=== PATIENT | female | born 1975 | race Hispanic/Latino ===

== ENCOUNTER 2020-02-13 02:31 | Outpatient (CLI) | payer OTHER, SELFPAY ==
[2020-02-13 18:16] LABS: SARS-CoV-2 RNA PCR Negative
== END 2020-02-13 02:32 | disposition home or self-care (01) ==
LOC: ANHCOVIDDT 02:31
PROVIDERS: PCP Family Medicine; Visit Provider Obstetrics & Gynecology
DX: Z01.812 Encounter for preprocedural laboratory examination (principal); Z20.828 Contact with and (suspected) exposure to other viral communicable diseases
CPT/HCPCS: 87635; C9803; U0003

== ENCOUNTER 2020-02-15 01:23 | Day surgery (SDC) | payer OTHER, SELFPAY ==
[2020-02-06 11:23] VITALS: BMI 26.2
[2020-02-15] MEDS: ACETAMINOPHEN 500 MG TABLET 1000 MG PO (06:45)
[2020-02-15] MEDS: LACTATED RINGERS 1,000 ML 30 ML IV CONT ×2 (06:51→08:10)
--- NOTE | 2020-02-15 06:51 | WPDANESEPPF ---
Anes - Initial Pre Proc Eval Procedure: Operation Date: 02/15/20 07:30 Proposed Procedures p Hysteroscopy, Urmila Endometrial Ablation - Brandon Lazo MD Date/Time: 02/15/20 06:51 Surgeon: Brandon Lazo MD Pre Op Diagnosis: Menorrhagia Patient Data Age: 44 Gender: F Height: 5 ft 5 in Weight: 71.67 kg Allergies Allergy/AdvReac Type Severity Reaction Status Date / Time No Known Allergies Allergy Unverified 02/06/20 11:23 Home Medications Medication Instructions Recorded Confirmed Type ergocalciferol (vitamin D2) 50,000 unit PO DAILY 02/06/20 02/15/20 History fluconazole 200 mg PO WEEKLY 02/06/20 02/15/20 History Patient hx anesthesia problems: none Family hx anesthesia problems: none [facility] Past Medical History Medical History (Updated 02/15/20 @ 06:55 by Brent Cruz MD) Menorrhagia Overweight Surgical History Surgical History (Updated 02/15/20 @ 06:56 by Brent Cruz MD) H/O breast augmentation History of abdominoplasty History of bunionectomy Social History Social History Smoking status: Never smoker Spiritual care concerns: No Anes - Eval Final PreProcedure Day of Procedure 02/15/20 06:51 Patient weight: overweight Heart: regular rate and rhythm Lungs: clear to auscultation Airway: Mallampati scale class II Neurological: alert and oriented Last oral intake: >/= 8 hours ASA classification: II Emergent: no Anesthetic plan: proceed Anesthesia type and monitoring: general GIVS and standard monitoring Informed Consent: The patient's anesthetic plan and its attendant risks and benefits were discussed with the patient/family/POA. Questions were solicited and answers provided to the satisfaction of the patient/family/POA.
[2020-02-15 06:53] VITALS: BP 111/67; PULSE 79; TEMP 36.3; O2SAT 100
--- NOTE | 2020-02-15 07:11 | WPDHPUPDATE1 ---
History and Physical Update Update Date/Time: 02/15/20 07:11 History and Physical has been reviewed, including an updated exam of the patient. There are NO changes in the patient's condition. Risks, benefits, and alternatives have been discussed and questions answered. Patient agrees to proceed with procedure.
[2020-02-15] MEDS: KETOROLAC 30 MG/ML VIAL (*BKC) IV PUSH (07:45)
--- NOTE | 2020-02-15 08:05 | SUR.OPER ---
700ml ns in, 700ml ns out. aware.
[2020-02-15 08:10] VITALS: BP 102/67; PULSE 76; RESP 18; O2SAT 95
--- NOTE | 2020-02-15 08:15 | PM.PROC ---
Procedure Note - Detailed Date of procedure: 02/15/20 Pre-op diagnosis: Menorrhagia Post-op diagnosis: same Procedure performed: Hysteroscopy D&C, endometrial ablation Description of procedure: The patient was taken the operating room. She has prepped and draped in the dorsal lithotomy position. Speculum was placed the vagina. The cervix grasped with a tenaculum. The cervix was injected at 3 and 9:00 a.m. with 1% lidocaine. The hysteroscope was inserted the intrauterine cavity through the cervix. The above findings were noted. The hysteroscope and uterine sound were used to calculate endometrial cavity length. The endometrial cavity length was entered into the device hand piece. The endometrial cavity was curettaged thoroughly with a medium-size curette. All surfaces were curettaged. The sample was sent to pathology. The device was placed in the intrauterine cavity and the array was expanded. The balloon cuff was inflated. The power and safety checks were initiated. Never completed the array was collapsed and the balloon cuff was collapsed. The device was withdrawn. The hysteroscope was inserted back into the intrauterine cavity and well desiccated endometrial cavity was observed. The speculum was removed. The tenaculum was removed. The patient tolerated procedure well. She is take covering stable condition. Anesthesia: MAC Surgeon: Brandon Lazo MD Estimated blood loss (mL): 15 Drains: No Packing: No Pathology: yes Complications: No immediate complications Condition: stable Disposition: PACU Findings: Normal appearing vulva vagina and cervix., normal-appearing intrauterine cavity.
[2020-02-15 08:40] VITALS: BP 96/70; PULSE 69; RESP 18; O2SAT 100
[2020-02-15 09:10] VITALS: BP 91/65; PULSE 66; RESP 18
== END 2020-02-15 09:13 | disposition home or self-care (01) ==
PROVIDERS: PCP Family Medicine; Visit Provider Obstetrics & Gynecology
PROC: 0U5B8ZZ Destruction of Endometrium, Via Natural or Artificial Opening Endoscopic (ICD-10-PCS; CPT 58563; principal; 2020-02-15 07:30)
DX: N92.0 Excessive and frequent menstruation with regular cycle (principal)
CPT/HCPCS: 58563; A9270; J1100; J1885; J2001; J2250; J2704; J7030; J7120

== ENCOUNTER 2020-04-10 12:30 | Emergency (ER) | payer OTHER, SELFPAY ==
--- NOTE | ~2020-04-10 | CT_ITS ---
EXAMINATION: CT abdomen pelvis wo con DATE: 04/10/2020 14:08 INDICATION: Left lower quadrant abdominal pain. Diarrhea. TECHNIQUE: Computed tomography (CT) of the abdomen and pelvis was performed without intravenous contr ast. Automated exposure control and iterative reconstruction technique were employed. The dose-length product was 474.52 mGy-cm. COMPARISON: None. FINDINGS: The visualized portions of the lung bases are clear without pneumonia or pleural effusion. The heart size is normal. No pericardial effusion. The liver, gallbladder, spleen, pancreas, adrenal glands, and right kidney are normal. There is a 5.2 cm cyst in left kidney. There is no urolithiasis. There are no dilated loops of bowel. The appendix is normal. There are no pathologically enlarged ly mph nodes. There is no free intraperitoneal fluid. There is severe lower lumbar spondylosis. IMPRESSION: 1. No etiology for the patient's symptoms. Reviewed, dictated and finalized at location B. ERENCE PLANNING MANAGER
[2020-04-10 12:33] VITALS: BP 125/90; PULSE 87; RESP 16; TEMP 36.1; O2SAT 100
[2020-04-10 13:23] LABS: Add Urine Microscopic? YES; Appearance Urine Clear (Clear); Bacteria Urine Trace /hpf; Basophils Percent Auto 0.3 % (0.2-1.2); Bilirubin Urine Negative (Negative); Blood Urine Negative (Negative); Color Urine Yellow (Yellow); Eosinophils Percent Auto 0.4 % (0-4.4); Glucose Urine UA Negative (Negative); Hematocrit 49.4 % (37.0-47.0); Hemoglobin 16.3 g/dL (12.0-15.0); Immature Granulocyte Absolute 0.04 K/mm3 (0.00-0.031); Immature Granulocyte Percent A 0.5 % (0-0.5); Ketones Urine Trace mg/dL (Negative); Leukocyte Esterase Ur Negative LEU/UL (Negative); Lymphocytes Absolute Auto 1.85 K/mm3 (0.9-3.2); Lymphocytes Percent Auto 25.4 % (18.3-44.2); Mean Corpuscular Hemoglobin 30.2 pg (26-34); Mean Corpuscular Volume 91.5 fl (80-100); Mean Platelet Volume 10.6 fl (7.4-10.4); Monocytes Absolute Auto 0.6 K/mm3 (0.1-0.6); Monocytes Percent Auto 7.8 % (2.6-8.5); Mucus Urine Heavy /lpf; Neutrophils Absolute Auto 4.8 K/mm3 (1.3-6.7); Neutrophils Percent Auto 65.6 % (45.5-73.1); Nitrate Urine Negative (Negative); Platelet Count Result 274 k/mm3 (150-375); Protein Urine 1+ mg/dL (Negative); RBC Urine 0-2 /hpf (0-2); Red Cell Distribution Width 12.9 % (11.5-14.5); Specific Grav Ur 1.028 (1.001-1.035); Squamous Epithelial Cell Urine Occasional /hpf (Few); Urobilinogen Urine Negative mg/dL (<2.0); WBC Urine 0-3 /hpf; White Blood Count 7.3 K/mm3 (4.5-10.0)
[2020-04-10 13:32] LABS: Alanine Aminotransferase 12 U/L (4-35); Albumin Level 3.8 g/dL (3.5-5.1); Alkaline Phosphatase 72 U/L (38-126); Anion Gap 8 mmol/L (8-16); Aspartate Amino Transferase 20 U/L (14-36); Bilirubin,Total 0.4 mg/dL (0.2-1.3); Blood Urea Nitrogen 17 mg/dL (7-17); Calcium 8.6 mg/dL (8.4-10.2); Carbon Dioxide 28 mmol/L (22-30); Chloride 104 mmol/L (98-107); Estimated CRCL calculation 80 ml/min; Estimated Glomerular Filt Rate > 60; Glucose 96 mg/dL (65-105); Lipase 43 U/L (23-300); Potassium 3.3 mmol/L (3.4-5.0); Sodium 140 mmol/L (137-145)
--- NOTE | 2020-04-10 14:45 | ED.ABDPAIN ---
HPI - Abdominal Pain General Chief Complaint: Abdominal Pain Stated Complaint: ABD pain Time Seen by Provider: 04/10/20 13:04 Source: patient Mode of arrival: ambulatory Limitations: no limitations History of Present Illness HPI narrative: Patient presents with chief complaint of pain to the left lower quadrant that has been occurring since before February. 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 Patient states that she had a endometrial ablation but was very upset because she has since had to menstrual. Is which is very uncommon after having the procedure. Patient states that she also noticed some vaginal discharge which she told Dr. Lance about so she was seen in his office this morning and had a vaginal examination as well as ultrasound and he states that her symptoms were not gynecological. He instructed her to come to the emergency department for evaluation to see if her symptoms were related to her colon or another area. Related Data Home Medications Medication Instructions Recorded Confirmed ergocalciferol (vitamin D2) 50,000 unit PO DAILY 02/06/20 02/15/20 fluconazole 200 mg PO WEEKLY 02/06/20 02/15/20 Allergies Allergy/AdvReac Type Severity Reaction Status Date / Time No Known Allergies Allergy Unverified 02/06/20 11:23 Review of Systems Review of Systems: Narrative: CONSTITUTIONAL: Denies fever, chills, or sweats. EYES: Denies visual changes, redness, or discharge. ENT: Denies rhinorrhea, congestion, sore throat, or otalgia. CARDIOVASCULAR: Denies chest pain, palpitations, or edema. RESPIRATORY: Denies cough or dyspnea. GASTROINTESTINAL: Reports left lower quadrant abdominal pain, occasional vaginal bleeding and discharge, denies nausea, vomiting, or diarrhea. GENITOURINARY: Denies dysuria or hematuria. SKIN: Denies rash or itching. MUSCULOSKELETAL: Denies back pain, joint pain, or myalgia. NEUROLOGIC: Denies headache, numbness, dizziness, or weakness. PSYCHIATRIC: Denies anxiety or depression. [facility] Past Medical History Medical History (Updated 04/10/20 @ 14:49 by Jovita Smith PA-C) Menorrhagia Overweight Surgical History Surgical History (Updated 02/15/20 @ 06:56 by Brent Cruz MD) H/O breast augmentation History of abdominoplasty History of bunionectomy Social History Social History Smoking status: Never smoker Gender identity (if verbalized by the patient): Female Spiritual care concerns: No Exam Narrative: Exam Narrative: GENERAL: Well-appearing, well-nourished, and in no acute distress. HEAD: Normocephalic, atraumatic. EYES: PERRLA and EOMI. ENT: Nares clear, no rhinorrhea or epistaxis. Mucous membranes moist. Oropharynx without tonsillar hypertrophy exudate or other lesions. Bilateral TMs pearly nuno nonbulging CHEST: Clear to auscultation. No respiratory distress. No wheezes rales or rhonchi HEART: Regular rate and rhythm. No murmur heard. Normal peripheral pulses. ABDOMEN: Soft, tender with palpation of the left lower quadrant, nondistended, normal active bowel sounds. EXTREMITIES: Normal range of motion. No edema. SKIN: Warm, dry, no rash. NEURO: No focal deficits. Alert and oriented x3. PSYCH: Normal mood and affect. Course Vital Signs Vital signs: Vital Signs Temperature 97.0 F L 04/10/20 12:33 Pulse Rate 87 04/10/20 12:33 Respiratory Rate 16 04/10/20 12:33 Blood Pressure 125/90 04/10/20 12:33 Pulse Oximetry 100 04/10/20 12:33 Temperature 97.0 F L 04/10/20 12:33 Pulse Rate 87 04/10/20 12:33 Respiratory Rate 16 04/10/20 12:33 Blood Pressure 125/90 04/10/20 12:33 Pulse Oximetry 100 04/10/20 12:33 MDM - Abdominal Pain MDM Narrative Medical decision making narrative: Consult with Dr. Lance who states the patient has left lower quadrant pain does not have any gynecological findings. He states
== END 2020-04-10 15:18 | disposition home or self-care (01) ==
PROVIDERS: Emergency Provider Emergency Medicine; PCP Family Medicine
DX: R10.32 Left lower quadrant pain (principal)
CPT/HCPCS: 36415; 74176; 80053; 81001; 81025; 83690; 85025; 99284

== ENCOUNTER 2021-08-28 18:41 | Emergency (ER) | payer OTHER, SELFPAY ==
--- NOTE | ~2021-08-28 | XR_ITS ---
EXAMINATION: XR shoulder LT min 2V INDICATION: Left shoulder pain TECHNIQUE: Four views of the left shoulder are submitted. COMPARISON: None FINDINGS: Normal alignment. No fracture. Glenohumeral and acromioclavicular joint spaces are normal. Soft tissues are unremarkable. IMPRESSION: 1. No acute osseous abnormality. Reviewed, dictated and finalized at location F.
[2021-08-28 19:09] VITALS: BP 110/78; PULSE 98; RESP 18; TEMP 36.5; O2SAT 98
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
== END 2021-08-28 22:52 | disposition home or self-care (01) ==
PROVIDERS: Emergency Provider Family Medicine
DX: S46.912A Strain of unspecified muscle, fascia and tendon at shoulder and upper arm level, left arm, initial encounter (principal); E66.3 Overweight; Z68.28 Body mass index [BMI] 28.0-28.9, adult; V43.52XA Car driver injured in collision with other type car in traffic accident, initial encounter
CPT/HCPCS: 73030; 99283